=== PATIENT | male | born 1960 | race Caucasian/White ===

== ENCOUNTER 2017-11-21 23:56 | Emergency (ER) | payer OTHER ==
[~2017-11-21] VITALS: Ht 170.2 cm; Wt 72.6 kg
[~2017-11-21 23:56] MED LIST: CARV3.12 PO; DIGO0.122 PO; FURO80TA6 PO; GABA600T7 PO; GLIP5TAB4 PO; METF1000 PO; SPIR25TA20 PO
[2017-11-22] VITALS: BP 149/93
--- NOTE | 2017-11-22 00:10 | NUR ---
PATIENT LEFT WITHOUT BEING SEEN BY DR. [place]. NO FURTHER CARE PROVIDED FOR PATIENT.
--- NOTE | 2017-11-22 00:10 | NUR ---
PT REFUSED TO STAY AND LEFT AT THIS TIME
--- NOTE | 2017-11-22 00:10 | NUR ---
PATIENT LEFT WITHOUT BEING SEEN BY DR. [place]. NO FURTHER CARE PROVIDED FOR PATIENT.
== END 2017-11-22 00:10 | disposition left against medical advice (07) ==
LOC: MED 23:56
DX: R10.9 Unspecified abdominal pain (principal); I10 Essential (primary) hypertension; E11.9 Type 2 diabetes mellitus without complications; Z53.21 Procedure and treatment not carried out due to patient leaving prior to being seen by health care provider